=== PATIENT | female | born 1995 | race Caucasian/White ===

== ENCOUNTER 2020-09-01 18:58 | Emergency (ER) | payer BC, OTHER, SELFPAY ==
--- NOTE | ~2020-09-01 | XR_ITS ---
XR ankle RT min 3V DATE: 09/01/2020 22:31 INDICATION: Fall 4 days ago. Pain and swelling of right ankle TECHNIQUE: 4 views COMPARISON: None FINDINGS: There is diffuse soft tissue swelling. No fracture or dislocation of the ankle or disruptio n of the ankle mortise. No periosteal reaction or bone destruction. IMPRESSION: Soft tissue swelling Reviewed, dictated and finalized at location A. IMPRESSION: Soft tissue swelling
--- NOTE | ~2020-09-01 | XR_ITS ---
XR knee RT 3V DATE: 09/01/2020 22:31 INDICATION: Fall 4 days ago. Pain and swelling of the knee and ankle TECHNIQUE: 3 views COMPARISON: None FINDINGS: Threaded devices are noted in the lateral femoral condyle and proximal medial tibia or like ly prior cruciate ligament repair. No recent fracture or dislocation or joint effusion is evident. No periosteal reaction or bone destruction. Joint spaces are relatively preserved. No radiopaque intr a-articular loose body or chondrocalcinosis is evident. IMPRESSION: Postoperative change; no acute finding Reviewed, dictated and finalized at location A.
[2020-09-01 19:11] VITALS: BP 126/80; PULSE 87; RESP 18; TEMP 36.8; O2SAT 100
[2020-09-01 22:45] VITALS: BP 130/83; PULSE 76; RESP 18; TEMP 36.8; O2SAT 99
--- NOTE | 2020-09-01 22:55 | ED.LOWEXIN ---
HPI - Extremity Injury (Lower) General Chief Complaint: Extremity Injury, Lower Stated Complaint: right leg swellinlg Time Seen by Provider: 09/01/20 22:50 Source: patient Mode of arrival: ambulatory Limitations: no limitations History of Present Illness HPI Narrative: Patient is a 25-year-old female complaining of right knee and right ankle swelling and pain after she tripped and fell 1 week ago. Patient states that the swelling has increased after being on her feet all weekend long working on a house she just bought. Patient states that her pain is mild and does not want anything for pain. Patient denies any other pain or injuries. Denies any chest pain, shortness of breath, back pain Related Data Allergies Allergy/AdvReac Type Severity Reaction Status Date / Time No Known Allergies Allergy Unknown Verified 01/24/19 10:20 Review of Systems Review of Systems: All systems reviewed & are unremarkable except as noted in HPI and below PMFSH Comments Past medical history: None Social history: Non-smoker no EtOH or drug use Family history noncontributory Exam Const: General: no acute distress and alert Orientation/consciousness: patient oriented x3 HENMT: Head: normal to inspection Eyes: Conjunctivae: conjunctivae normal Neck: Neck: normal visual inspection Resp: Effort & Inspection: normal respiratory effort Skin: Wounds: no wounds Neuro: General: patient oriented x3 and moves all extremities Extrem: Other: No deformity or redness. Mild ecchymosis anterior aspect of right leg. Right ankle swelling, pain on palpation of the right ankle, pain on range of motion of the right ankle. Neurovascular is intact. Course Course Emergency Course: Patient did not want anything for pain, states that she has high tolerance for pain. Vital Signs Vital signs: Vital Signs Temperature 36.8 C 09/01/20 19:11 Pulse Rate 87 09/01/20 19:11 Respiratory Rate 18 09/01/20 19:11 Blood Pressure 126/80 09/01/20 19:11 Pulse Oximetry 100 09/01/20 19:11 Temperature 36.8 C 09/01/20 22:45 Pulse Rate 76 09/01/20 22:45 Respiratory Rate 18 09/01/20 22:45 Blood Pressure 130/83 09/01/20 22:45 Pulse Oximetry 99 09/01/20 22:45 Discharge Plan Discharge Clinical Impression: Ankle sprain and strain Contusion of knee and lower leg Qualifiers: Encounter type: initial encounter Laterality: right Qualified Code(s): S80.01XA - Contusion of right knee, initial encounter Patient Disposition: Home, Self-Care Condition: Stable Instructions: Ankle Sprain (ED), Contusion in Adults (ED) Follow-up/Referrals: Gregor Ramirez MD [Primary Care Provider] - 09/02/20 Time of Disposition: 23:02
[2020-09-01] MEDS: TETANUS,DIPHTHERIA,AC PERTUSSIS ADULT (0.5 ML) BOOSTRIX IM (23:17)
== END 2020-09-01 23:40 | disposition home or self-care (01) ==
PROVIDERS: Emergency Provider Emergency Medicine; PCP Family Medicine Adolescent Medicine
DX: S93.401A Sprain of unspecified ligament of right ankle, initial encounter (principal); S80.01XA Contusion of right knee, initial encounter; W01.0XXA Fall on same level from slipping, tripping and stumbling without subsequent striking against object, initial encounter; Z23 Encounter for immunization
CPT/HCPCS: 73562; 73610; 90471; 90715; 99284

== ENCOUNTER 2023-10-18 05:49 | Emergency (ER) | payer OTHER, SELFPAY ==
--- NOTE | ~2023-10-18 | CT_ITS ---
Non-contrast CT scan of the Abdomen and Pelvis Clinical indication: Flank pain Technique: 2.5 mm axial scans were obtained through the abdomen and pelvis without intravenous or or al contrast. Dose reduction technique was used on this scan by utilizing automated exposure control a nd iterative reconstruction technique. The dose-length product (DLP) was 1236.34 mGy-cm. Findings: Images through the lung bases reveal no abnormalities. There is no evidence of renal or ureteral calculi. The kidneys and the ureters are nondilated. The liver, spleen, pancreas, gallbladder, and adrenals appear normal. There is no aortic aneurysm. There is no evidence of bowel obstruction. Small fat-containing umbilical hernia noted. Images through the pelvis were performed. There is no evidence of ascites or lymphadenopathy. Possibl e mild perivesical inflammatory stranding. Correlate for cystitis. No pelvic mass seen. IUD in place. No ascites. Impression: Questionable cystitis. Correlate clinically and with urinalysis. No other significant findings. IUD in place. Reviewed, dictated and finalized at location . Impression: Questionable cystitis. Correlate clinically and with urinalysis. No other significant findings. IUD in place.
[2023-10-18 05:55] VITALS: BP 142/89; PULSE 93; RESP 15; TEMP 36.1; O2SAT 99
[2023-10-18 06:36] VITALS: BP 130/84; PULSE 84; RESP 15; O2SAT 98
[2023-10-18 06:54] LABS: Basophils Percent Auto 0.3 % (0.2-1.2); Eosinophils Absolute Auto 0.1 K/mm3 (0-0.3); Eosinophils Percent Auto 0.7 % (0-4.4); Hemoglobin 8.1 g/dL (12.0-15.0); Immature Granulocyte Absolute 0.02 K/mm3 (0.00-0.031); Immature Granulocyte Percent A 0.3 % (0-0.5); Lymphocytes Absolute Auto 1.44 K/mm3 (0.9-3.2); Lymphocytes Percent Auto 20.1 % (18.3-44.2); Mean Corpuscular HGB Conc 28.9 g/dl (32-36); Mean Corpuscular Hemoglobin 19.5 pg (26-34); Mean Corpuscular Volume 67.3 fl (80-100); Mean Platelet Volume 10.4 fl (7.4-10.4); Monocytes Absolute Auto 0.5 K/mm3 (0.1-0.6); Monocytes Percent Auto 7.1 % (2.6-8.5); Neutrophils Absolute Auto 5.1 K/mm3 (1.3-6.7); Neutrophils Percent Auto 71.5 % (45.5-73.1); Platelet Count Result 470 k/mm3 (150-375); Red Blood Count 4.16 M/mm3 (4.2-5.4); Red Cell Distribution Width 17.1 % (11.5-14.5); White Blood Count 7.2 K/mm3 (4.5-10.0)
[2023-10-18 07:03] LABS: Alanine Aminotransferase 18 U/L (6-35); Albumin Level 3.9 g/dL (3.5-5.1); Alkaline Phosphatase 62 U/L (38-126); Anion Gap 9 mmol/L (4-12); Aspartate Amino Transferase 19 U/L (14-36); Bilirubin,Total 0.4 mg/dL (0.2-1.3); Blood Urea Nitrogen 11 mg/dL (7-17); Calcium 8.6 mg/dL (8.4-10.2); Carbon Dioxide 23 mmol/L (22-30); Chloride 106 mmol/L (98-107); Estimated CRCL calculation 136 ml/min; Estimated Glomerular Filt Rate > 60; Glucose 94 mg/dL (65-110); Potassium 3.7 mmol/L (3.4-5.0); Sodium 138 mmol/L (137-145)
[2023-10-18 07:15] LABS: Appearance Urine Cloudy (Clear); Bacteria Urine None Seen /hpf; Bilirubin Urine Negative (Negative); Blood Urine Non-Hemolyzed Trace (Negative); Color Urine Dark Yellow (Yellow); Glucose Urine UA Negative (Negative); Ketones Urine Negative (Negative); Leukocyte Esterase Ur 2+ LEU/UL (Negative); Need Manual Microscopic Reviewed; Nitrate Urine Positive (Negative); Non Pathogenic Casts 0-2; Protein Urine Trace mg/dL (Negative); RBC Urine 0-2 /hpf (0-2); Specific Grav Ur 1.015 (1.001-1.035); Squamous Epithelial Cell Urine None Seen /hpf (Few); WBC Urine >100 /hpf (0-3)
[2023-10-18 07:18] LABS: Add Urine Microscopic? YES
[2023-10-18] MEDS: KETOROLAC 15 MG/ML VIAL (*BKC) IV PUSH (07:27)
[2023-10-18] MEDS: ACETAMINOPHEN 500 MG TABLET 1000 MG PO (07:27)
[2023-10-18] MEDS: methocarbamoL 750 MG TABLET 1500 MG PO (07:28)
[2023-10-18 07:34] LABS: Anisocytosis 1+; Hypochromasia 2+; Ovalocytes 1+; Platelet Estimate Slightly Increased (Adequate)
[2023-10-18 07:35] VITALS: BP 148/84; PULSE 80; RESP 16; O2SAT 99
[2023-10-18 07:35] LABS: Schistocytes None Seen; Tear Drop Cells 1+
[2023-10-18 07:37] LABS: Lipase 74 U/L (23-300)
--- NOTE | 2023-10-18 09:02 | ED.GENADULT ---
HPI - General Adult General Chief complaint: Abdominal Pain Stated complaint: lower back pain Time Seen by Provider: 10/18/23 06:42 History of Present Illness HPI narrative: This is a 28-year-old female presenting ED with chief complaint of urinary symptoms back pain. Patient says that starting a week ago she developed dysuria urgency. Pain has been fluctuating since then but now she has developed bilateral back pain pain is described as crampy and worse with movement. She has been taking ibuprofen intermittently with some relief. She denies fevers chills nausea vomiting or diarrhea. No abdominal pain. No history of kidney stones Related Data Home Medications Medication Instructions Recorded Confirmed levonorgestrel 17.5 mcg/24 hr (up 1 device intrauterine ONCE 10/12/22 06/29/23 to 5 yrs) 19.5mg intrauterine device (Kyleena) Allergies Allergy/AdvReac Type Severity Reaction Status Date / Time No Known Allergies Allergy Unknown Verified 06/29/23 07:52 [facility] Past Medical History Medical History Bipolar disorder, unspecified Major depressive disorder, recurrent, moderate Surgical History Surgical History History of right knee surgery right ACL construction x2, right meniscus repair Family History Family History Grandparent Asthma Depression Diabetes mellitus Heart disease Hypertension Dementia Mother Depression Thyroid cancer Social History Social History Smoking status: Never smoker Second hand tobacco smoke exposure: No Alcohol intake: former Alcohol use details: Stopped drinking 04/11/2021 Substance use type: marijuana Other substance usage details: socially Lack of Transportation: No Lack of Food: Never True Current Housing: I Have Housing Concerned About Future Housing: No Difficulty Paying Gas/Electric Bills: No Difficulty Paying for Meds: No Currently Unemployed: No Education: Bachelor's Degree Difficulty w/ Childcare or Family Care: No Living arrangements: alone Occupation/Education: occupation Gender identity (if verbalized by the patient): Female Sexual Orientation (if Verbalized by the Patient): Straight or Heterosexual Spiritual care concerns: No Agree to blood products: Yes Exam Narrative: APPEARANCE: No apparent distress. Head: atraumatic. EYES: EOMI, NOSE: Atraumatic NECK: Trachea midline RESPIRATORY: No increased rate of breathing clear to auscultation CARDIOVASCULAR: RRR, ABDOMINAL: Non-distended, soft nontender no guarding rebound MUSCULOSKELETAl: No obvious deformities NEURO: Alert. Moving 4/4 extremities SKIN:: Warm, dry. Normal color PSYCHIATRIC: Normal affect Course Vital Signs Vital signs: Vital Signs Temperature 97 F L 10/18/23 05:55 Pulse Rate 93 10/18/23 05:55 Respiratory Rate 15 10/18/23 05:55 Blood Pressure 142/89 H 10/18/23 05:55 Pulse Oximetry 99 10/18/23 05:55 Oxygen Delivery Room Air 10/18/23 05:55 Temperature 97 F L 10/18/23 05:55 Pulse Rate 80 10/18/23 07:35 Respiratory Rate 16 10/18/23 07:35 Blood Pressure 148/84 H 10/18/23 07:35 Pulse Oximetry 99 10/18/23 07:35 Oxygen Delivery Room Air 10/18/23 05:55 Medical Decision Making [facility] Narrative Medical decision making narrative: -Course: 28-year-old female presenting with urinary symptoms and back pain urine indicative of infection. CT abdomen pelvis showed cystitis without evidence of kidney stones and pyelonephritis. Overall the patient is well appearing stable vital signs. She is young with no significant comorbidities. She is a good candidate for outpatient management. She is given a dose of IV antibiotics in the emergency department will be discharged on a course of cefdinir.
[2023-10-18 09:25] VITALS: BP 132/87; PULSE 80; RESP 19; O2SAT 97
== END 2023-10-18 09:25 | disposition home or self-care (01) ==
PROVIDERS: Emergency Medicine; Emergency Provider Emergency Medicine; PCP Family Medicine Adolescent Medicine
DX: N12 Tubulo-interstitial nephritis, not specified as acute or chronic (principal); F31.9 Bipolar disorder, unspecified; Z97.5 Presence of (intrauterine) contraceptive device; Z79.899 Other long term (current) drug therapy
CPT/HCPCS: 36415; 74176; 80053; 81001; 81025; 83690; 85025; 87086; 96365; 96375; 99284; A9270; J0696; J1885

== ENCOUNTER 2024-10-07 00:32 | Day surgery (SDC) | payer OTHER, SELFPAY ==
[2024-10-02 09:19] VITALS: BMI 40.8
--- NOTE | 2024-10-02 09:27 | PC.NURSE ---
Addendum entered by Guillermo Arzate RN 10/02/24 09:40: Correction: Nothing to eat or drink after midnight. Original Note: Report to the Outpatient Waiting Room, entrance under the green pavilion located off [facility], at time _0600_ on date _[id number]_. Planned Procedure Time: _0730_.? Time changes happen often and if your time is changed the preop area will call you the afternoon before. - You and your visitor will be asked to self-screen and do not enter if you have any COVID symptoms. Please call surgeon if you need to reschedule. - A mask is optional within the hospital at this time. Patients may have clear liquids (water, carbonated beverages, clear teas, apple juice) until 3 hours prior to surgery with a maximum of 20 ounces. - No food from midnight until time of surgery and no smoking, or chewing tobacco (or any form of nicotine). No chewing gum, candy or mints. Take only the following medications with a SIP of water on the morning of surgery: ___Citalopram, Aripiprazole and if needed Flonase.____ DO NOT STOP ANY OF YOUR OTHER PRESCRIPTION MEDICATIONS PRIOR TO SURGERY EXCEPT THE FOLLOWING Hold all vitamins and supplements for 3 days per anesthesiologist. Medications to discontinue per physician Date to take last dose Please no make-up, nail portuguese, hairspray, perfume, deodorant, or body powder the day of surgery.? No jewelry (including any body piercings) or valuables the day of surgery, leave them at home.? Please take a shower or bath the night before, or the morning of, surgery with an antibacterial soap.? Wear comfortable, loose fitting clothing.? - Jewelry must be removed prior to entering the operating room.? Rings and piercings that are not removed may be cut off. - The hospital will not accept responsibility for valuables.? - Please leave all valuables, including medications, at home the day of surgery. If you are going home after surgery, a licensed tour driver must drive you home.? - NO public transportation without another adult if you receive anesthesia. - We recommend that an adult stay with you for 24 hours following discharge. - We also recommend that you do not drive, make important decision, drink alcoholic beverages, or take any drugs that were not prescribed by your health care provider for at least 24 hours after your discharge time. Follow any additional instructions given to you from your surgeon. Telephone instructions given to __Patsy___and asked if any additional questions and then verbalized understanding. Patient advised to call surgeon office or pre surgery nurse liaison [phone] if any additional questions.
[2024-10-07] VITALS (7 sets, daily range): BP systolic 120–137; BP diastolic 69–84; PULSE 16–98; RESP 14–23; TEMP 36.3–36.8; O2SAT 98–100
--- OUTSIDE RECORDS SUMMARY | 2024-10-07 00:34 | XMS_ITS | Clinical Summary ---
Author Organization [facility] Address [address] [place] [phone] Phone Care Team Providers Care Bpm Analyst Name Role Phone Unavailable Primary Care Provider Unavailabl e Social History Tobacco Use Types Packs/Day Years Used Date Smoking Tobacco: Never Assessed Comments Unknown Sex and Gender Information Value Date Recorded Sex Assigned at Not on file Legal Sex Female 11:26 AM CDT Gender Identity Not on file Sexual Orientation Not on file Plan of Treatment Health Maintenance Due Date Last Done Comments DTAP/TDAP/TD VACCINES (1 - Tdap) 2016 HEPATITIS B VACCINES (1 of 3 - 19+ 3-dose series) 2016 CERVICAL CANCER SCREENING 2018 HPV/Cotest (21-29) 2018 PAP SMEAR 2018 INFLUENZA VACCINE (#1) 2024 HPV VACCINES Aged Out No longer eligi ble based on patient's age to complete this topic
[2024-10-07] MEDS: ACETAMINOPHEN 500 MG TABLET 1000 MG PO (07:00)
[2024-10-07] MEDS: LACTATED RINGERS 1,000 ML 30 ML IV CONT (07:00)
[2024-10-07] MEDS: KETOROLAC 15 MG/ML VIAL (*BKC) IV PUSH (07:00)
--- NOTE | 2024-10-07 07:13 | WPDANESEPPF ---
Anes - Initial Pre Proc Eval Procedure: Operation Date: 10/07/24 07:30 Proposed Procedures p Rectal Examination Under Anesthesia, Hemorrhoidectomy - Claudia Wilcox MD Date/Time: 10/07/24 07:13 Surgeon: Claudia Wilcox MD Pre Op Diagnosis: Hemorrhoids Patient Data Age: 29 Gender: F Height: 1.7 m Weight: 126.7 kg Allergies Allergy/AdvReac Type Severity Reaction Status Date / Time No Known Allergies Allergy Unknown Verified 10/02/24 09:16 Home Medications ?Medication ?Instructions ?Recorded ?Confirmed ?Type levonorgestrel 17.5 mcg/24 hr (up 1 device intrauterine ONCE 10/12/22 10/02/24 History to 5 yrs) 19.5mg intrauterine device (Kyleena) hydrocortisone 2.5 % topical cream 1 applic RECTAL QHS PRN 03/05/24 10/02/24 Rx with perineal applicator hemorrhoids #30 grams (Anusol-HC) citalopram 20 mg tablet 20 mg PO DAILY #30 tabs 05/19/24 10/02/24 Rx docusate sodium 100 mg capsule 100 mg PO DAILY PRN constipation 08/07/24 10/02/24 History fluticasone propionate 50 1 spray intranasal DAILY #16 grams 08/07/24 10/02/24 Rx mcg/actuation nasal spray,suspension cholecalciferol (vitamin D3) 1,250 1,250 mcg PO WEEKLY #12 caps 08/08/24 10/02/24 Rx mcg (50,000 unit) capsule ferrous sulfate 325 mg (65 mg 325 mg PO DAILY #90 tabs 08/08/24 10/02/24 Rx iron) tablet aripiprazole 10 mg tablet 10 mg PO DAILY #30 tabs 08/27/24 10/02/24 Rx dextroamphetamine-amphetamine 15 22.5 mg (1.5 x 15 mg) PO BID #90 08/27/24 10/02/24 Rx mg tablet (Adderall) tabs folic acid 1 mg tablet 1 mg PO DAILY #90 tabs 09/18/24 10/02/24 Rx diphenhydramine HCl 25 mg tablet 25 mg PO HS PRN allergy symptoms 10/02/24 10/02/24 History (Allergy (diphenhydramine)) Patient hx anesthesia problems: none Family hx anesthesia problems: none Results Review: All pre-operative results and documents have been reviewed as part of the pre-operative evaluation. [facility] Past Medical History Medical History Bipolar disorder, unspecified Major depressive disorder, recurrent, moderate Surgical History Surgical History History of right knee surgery right ACL construction x2, right meniscus repair Family History Family History Grandparent Asthma Depression Diabetes mellitus Heart disease Hypertension Dementia Mother Depression Thyroid cancer Social History Social History Smoking status: Never smoker Second hand tobacco smoke exposure: No Alcohol intake: former Alcohol use details: Stopped drinking 04/11/2021 Substance use type: marijuana Other substance usage details: socially Lack of Transportation: No Lack of Food: Never True Current Housing: I Have Housing Concerned About Future Housing: No Difficulty Paying Gas/Electric Bills: No Difficulty Paying for Meds: No Currently Unemployed: No Education: Bachelor's Degree Difficulty w/ Childcare or Family Care: No Living arrangements: with family Occupation/Education: occupation Gender identity (if verbalized by the patient): Female Sexual Orientation (if Verbalized by the Patient): Straight or Heterosexual Spiritual care concerns: No Agree to blood products: Yes Anes - Eval Final PreProcedure Day of Procedure 10/07/24 07:13 Patient weight: morbidly obese Heart: regular rate and rhythm Lungs: clear to auscultation Airway: Mallampati scale class II Neurological: alert and oriented Last oral intake: >/= 8 hours ASA classification: III Emergent: no Anesthetic plan: proceed Anesthesia type and monitoring: general ETT and standard monitoring Results Review: All pre-operative results and documents have been reviewed as part of the pre-operative evaluation. Informed Consent: The patient's anesthetic plan and its attendant risks and benefits were discussed with the patient/family/POA. Questions were solicited and answers provided to the satisfaction of the patient/family/POA.
--- NOTE | 2024-10-07 07:16 | PM.IMHP ---
H&P: HPI History of Present Illness Date/Time: 10/07/24 07:16 Chief Complaint: Bleeding hemorrhoids Narrative: Patsy is a 28 y/o female who presents to the office at the request of Sheela Hutchison APRN for evaluation of bleeding hemorrhoids. Patient states she has been experiencing pain and bleeding during BM's since 2019. States this happens after almost every BM's. States she has noticed some blood in her stool. States she does experience frequent constipation. She does use stool softeners daily. She has tried several OTC and prescription treatment options with no change in symptoms. She had a colonoscopy in 2019 that showed multiple uncomplicated internal hemorrhoids. Review of Systems Review of Systems: All systems reviewed & are unremarkable except as noted in HPI and below PMFSH Past Medical History Medical History Bipolar disorder, unspecified Major depressive disorder, recurrent, moderate Surgical History Surgical History History of right knee surgery right ACL construction x2, right meniscus repair Family History Family History Grandparent Asthma Depression Diabetes mellitus Heart disease Hypertension Dementia Mother Depression Thyroid cancer Social History Social History Smoking status: Never smoker Second hand tobacco smoke exposure: No Alcohol intake: former Alcohol use details: Stopped drinking 04/11/2021 Substance use type: marijuana Other substance usage details: socially Lack of Transportation: No Lack of Food: Never True Current Housing: I Have Housing Concerned About Future Housing: No Difficulty Paying Gas/Electric Bills: No Difficulty Paying for Meds: No Currently Unemployed: No Education: Bachelor's Degree Difficulty w/ Childcare or Family Care: No Living arrangements: with family Occupation/Education: occupation Gender identity (if verbalized by the patient): Female Sexual Orientation (if Verbalized by the Patient): Straight or Heterosexual Spiritual care concerns: No Agree to blood products: Yes Meds Home Medications and Allergies Home Medications ?Medication ?Instructions ?Recorded ?Confirmed ?Type levonorgestrel 17.5 mcg/24 hr (up 1 device intrauterine ONCE 10/12/22 10/02/24 History to 5 yrs) 19.5mg intrauterine device (Kyleena) hydrocortisone 2.5 % topical cream 1 applic RECTAL QHS PRN 03/05/24 10/02/24 Rx with perineal applicator hemorrhoids #30 grams (Anusol-HC) citalopram 20 mg tablet 20 mg PO DAILY #30 tabs 05/19/24 10/02/24 Rx docusate sodium 100 mg capsule 100 mg PO DAILY PRN constipation 08/07/24 10/02/24 History fluticasone propionate 50 1 spray intranasal DAILY #16 grams 08/07/24 10/02/24 Rx mcg/actuation nasal spray,suspension cholecalciferol (vitamin D3) 1,250 1,250 mcg PO WEEKLY #12 caps 08/08/24 10/02/24 Rx mcg (50,000 unit) capsule ferrous sulfate 325 mg (65 mg 325 mg PO DAILY #90 tabs 08/08/24 10/02/24 Rx iron) tablet aripiprazole 10 mg tablet 10 mg PO DAILY #30 tabs 08/27/24 10/02/24 Rx dextroamphetamine-amphetamine 15 22.5 mg (1.5 x 15 mg) PO BID #90 08/27/24 10/02/24 Rx mg tablet (Adderall) tabs folic acid 1 mg tablet 1 mg PO DAILY #90 tabs 09/18/24 10/02/24 Rx diphenhydramine HCl 25 mg tablet 25 mg PO HS PRN allergy symptoms 10/02/24 10/02/24 History (Allergy (diphenhydramine)) Allergies Allergy/AdvReac Type Severity Reaction Status Date / Time No Known Allergies Allergy Unknown Verified 10/02/24 09:16 Exam Const: General: cooperative, comfortable and no acute distress Resp: Auscultation: clear to auscultation bilaterally Cardio: Rate: regular rate Rhythm: regular rhythm GI: Inspection: normal to inspection Other: moderately inflamed external hemorrhoids Assessment and Plan Assessment and plan (1) Bleeding hemorrhoids: Code(s): K64.9 - Unspecified hemorrhoids Status: Acute Assessment and Plan: will set up for EUA and hemorrhoidectomy
--- NOTE | 2024-10-07 07:17 | WPDHPUPDATE1 ---
History and Physical Update Update Date/Time: 10/07/24 07:17 History and Physical has been reviewed, including an updated exam of the patient. There are NO changes in the patient's condition. Risks, benefits, and alternatives have been discussed and questions answered. Patient agrees to proceed with procedure.
[2024-10-07] MEDS: ceFAZolin 3 GM/D5W 100 ML 100 ML IVPB (07:29)
[2024-10-07] MEDS: BUPIVACAINE/EPINEPHRINE 0.5% 30 ML VIAL INFILTRATE (07:29)
--- NOTE | 2024-10-07 07:50 | S_PTH ---
PATIENT: Patsy Dixon LOC: [facility] U#:[id number] AGE/SX: 29/F ROOM: RE10/07/[address]: Claudia Wilcox MD : 1995 BED: DIS: 10/07/2024 SPEC #: [id number] RECD: 10/07/24 10:19 STATUS: DANE REQ #: [id number] REGLA: 10/07/24 07:[address]: Claudia Wilcox DEPT: [facility] Surgical RECD BY: Marie Limon ENTERED: 10/07/24 10:19 SP TYPE: Surgical OTHR DR: Gregor Ramirez MD Tissues: A - Hemorroid Procedures: Hematoxylin and Eosin Stain Gross and Microscopic Level 3
[2024-10-07] MEDS: LIDOCAINE 2% GEL UROJET 10 ML PKG MUCOUS MEM (08:00)
--- NOTE | 2024-10-07 08:20 | W.PM.PROC2 ---
Procedure Note - Detailed Date of Procedure 10/07/24 Pre-op Diagnosis bleeding hemorrhoids Post-op Diagnosis Same Procedure Performed Exam under anesthesia, internal and external hemorrhoidectomy involving left lateral and right anterior positions Surgeon Claudia Wilcox MD Anesthesia General and Local Indications 29 y/o F c multiple bleeding internal and external hemorrhoids c frequent flares causing pain, bleeding refractory to conservative measures. Findings multiple internal and external hemorrhoids predominately in L lateral and R anterior Description of Procedure The patient was taken to the operating room and placed in the modified lithotomy position. After adequate induction of general anesthesia, the patient was prepped and draped in the normal sterile fashion. A time-out was then done to verify the patient's identity, as well as the procedure being performed. I began by doing a digital exam. There was noted to be multiple external hemorrhoids. At this point, a bilateral pudendal block was done. I then used the lone Star retractor to further evaluate the anal canal as well as rectum. There was noted to be multiple internal hemorrhoids as well. There was noted to be some mild bleeding of these hemorrhoids. I then began excising the internal hemorrhoids using the hand-held LigaSure device. The hemorrhoids were noted to be in the left lateral and right anterior positions. Multiple hemorrhoids were excised using the LigaSure. I also excised multiple moderately inflamed external hemorrhoids. The specimens will be sent to pathology for further review. Hemostasis was noted at all excision sites. I then placed a piece of Gelfoam covered with lidocaine jelly into the rectal vault. The patient tolerated the procedure and was extubated in the operating room postop. She will be transferred to the recovery room in stable condition. Implants Gelfoam covered with lidocaine jelly in the rectal vault Estimated Blood Loss 25 Drains No Packing Yes Pathology Yes Complications No immediate complications Condition Stable Disposition PACU [facility] Billing Surgery - Charge Forward: Surgery Billing
[2024-10-07 09:06] LABS: BEDSIDEPREGUCG Negative (Negative)
== END 2024-10-07 09:55 | disposition home or self-care (01) ==
PROVIDERS: PCP Family Medicine Adolescent Medicine; Visit Provider Surgery
PROC: (CPT 46260; principal; 2024-10-07 07:30)
DX: K64.8 Other hemorrhoids (principal); F33.9 Major depressive disorder, recurrent, unspecified; F12.90 Cannabis use, unspecified, uncomplicated; E66.01 Morbid (severe) obesity due to excess calories; Z68.41 Body mass index [BMI] 40.0-44.9, adult; Z98.890 Other specified postprocedural states; Z80.8 Family history of malignant neoplasm of other organs or systems; Z82.49 Family history of ischemic heart disease and other diseases of the circulatory system
CPT/HCPCS: 46260; 88304; A9270; J0690; J1100; J1885; J2003; J2250; J2405; J2704; J3010; J7120

== ENCOUNTER 2024-11-07 18:17 | Emergency (ER) | payer OTHER, SELFPAY ==
--- NOTE | 2024-11-07 18:19 | ECG_ITS ---
Test Date: 2024-11-07 18:22:27 Measurements Intervals [place] Rate: 114 P: 0 NC: 0 QRS: 11 QRSD: 89 T: 32 QT: 313 QTc: 431 Interpretive Statements SINUS TACHYCARDIA INCOMPLETE RIGHT BUNDLE BRANCH BLOCK BORDERLINE ST-T WAVE ABNORMALITY- ANT/INF LEADS ABNORMAL ECG No previous ECG available for comparison Electronically Signed On 11-08-2024 10:51:53 CDT by Nain oPsadas D.O.
--- OUTSIDE RECORDS SUMMARY | 2024-11-07 18:19 | XMS_ITS | Clinical Summary ---
Author Organization [facility] Address [address] [place] [phone] Phone Care Team Providers Care Director Database Name Role Phone Unavailable Primary Care Provider Unavailabl e Social History Tobacco Use Types Packs/Day Years Used Date Smoking Tobacco: Never Assessed Comments Unknown Sex and Gender Information Value Date Recorded Sex Assigned at Not on file Legal Sex Female 11:26 AM CDT Gender Identity Not on file Sexual Orientation Not on file Plan of Treatment Health Maintenance Due Date Last Done Comments HPV VACCINES (1 - 3-dose series) 2012 DTAP/TDAP/TD VACCINES (1 - Tdap) 2016 HEPATITIS B VACCINES (1 of 3 - 19+ 3-dose series) 08/02 CERVICAL CANCER SCREENING 2018 HPV/Cotest (21-29) 2018 PAP SMEAR 2018 INFLUENZA VACCINE (#1) 2024
--- OUTSIDE RECORDS SUMMARY | 2024-11-07 18:19 | XMS_ITS | Patient Health Record ---
Author Organization [facility] [employer] Address [address] [place] [address] Care Team Providers Care Conveyor Feeder Offbearer Name Role Phone Lisette Ramirez Unavailable [phone] Reason For Referral No Information Medications Medication SIG (Take, Route, Frequency, Duration) Notes Start Date End Date Status 04/22 1-20 MG-MCG Oral 08/28/2020 Active Doxycycline Hyclate 100 MG Oral 08/28/2020 Active ID Now COVID-19 In Vitro *Reorder from [email or web address] for eRx and Interaction Alerts* 08/28/2020 Active ARIPiprazole 5 MG Oral 08/28/2020 A ctive Sertraline HCl 25 MG Oral 08/28/2020 Active Immunizations Vaccine Route Administration Date Status Comme nts Influenza virus vaccine, quadrivalent (IIV4), split virus, 0.25 mL dosage Unknown 02/02/2019 Administered Influenza virus vaccine, quadrivalent (IIV4), split virus, 0.25 mL dosage Unknown 01/30/2020 Administered Plan Of Treatment No Information Insurance Providers Payer Name Payer Address Payer Phone Subscriber Number Group Number Insured Name Patient Relationship to Insured Coverage Start Date Coverage End Date Bc-Ri Ppo [address] [place] [phone] [id number] LOTT Self - patient is the insured [employer] [address] [place], [place] [phone] [id number] LOTT Child - Insured has Financial Responsibility Medical (General) History Surgical History Surgery Date(Month/Year) Reconstructive surgery 12/05/2015
[2024-11-07 18:55] VITALS: BP 145/83; PULSE 120; RESP 18; TEMP 36.7; O2SAT 100
--- NOTE | 2024-11-07 21:13 | PC.NURSE ---
2112---no answer for rooming
--- NOTE | 2024-11-07 21:18 | PC.NURSE ---
unable to locate patient in waiting room or outside
--- OUTSIDE RECORDS SUMMARY | 2024-11-07 21:58 | XMS_ITS | Clinical Summary ---
Author Organization [facility] Address [address] [place] [phone] Phone Care Team Providers Care Casing Crew Pusher Name Role Phone Unavailable Primary Care Provider [...]
== END 2024-11-07 21:13 | disposition left against medical advice (07) ==
LOC: ANHED 21:56
DX: R07.89 Other chest pain (principal)
CPT/HCPCS: 93005; 99199